=== PATIENT | male | born 1990 | race African-American/Black ===

== ENCOUNTER 2018-04-03 23:41 | Emergency (ER) | payer MEDICAID ==
[~2018-04-03] VITALS: Ht 170.2 cm; Wt 85.7 kg
[2018-04-04 00:03] VITALS: BP_SYST 126
[2018-04-04 00:35] LABS: BASOPHILS # (AUTO) 0.1 K/uL (0.0-0.2); EOSINOPHILS # (AUTO) 0.1 K/uL (0.0-0.4); LYMPHOCYTES # (AUTO) 1.8 K/uL (1.0-5.5); MEAN CORPUSCULAR HGB CONC 34 % (32-36); MONOCYTES # (AUTO) 0.6 K/uL (0.0-1.0); NEUTROPHILS # (AUTO) 4.2 K/uL (1.8-7.7); NEUTROPHILS % (AUTO) 62.7 % (40.0-70.0); WHITE BLOOD COUNT (AUTO) 6.8 K/uL (4.8-10.8)
[2018-04-04 00:37] LABS: BASOPHILS % (AUTO) 1.1 % (0.0-2.0); EOSINOPHILS % (AUTO) 1.1 % (0.0-4.0); HEMATOCRIT 43.3 % (36-54); HEMOGLOBIN 14.5 g/dL (14.0-18.0); LYMPHOCYTES % (AUTO) 26.8 % (20.5-51.5); MEAN CORPUSCULAR HEMOGLOBIN 30 pg (27-31); MEAN CORPUSCULAR VOLUME 90 fL (79.0-98.0); MONOCYTES % (AUTO) 8.3 % (1.7-9.3); PLATELET COUNT (AUTO) 245 K/uL (130-430); RED BLOOD CELL COUNT(AUTO) 4.82 MIL/uL (4.2-6.2); RED CELL DISTRIBUTION WIDTH 12.8 % (9.0-15.0)
[2018-04-04 00:42] LABS: CALCIUM 8.9 mg/dL (8.4-11.0); CREATININE 1.07 mg/dL (0.55-1.30); POTASSIUM 3.6 mmol/L (3.5-5.1)
[2018-04-04 00:48] LABS: ALBUMIN 4.1 g/dL (3.4-4.8); TOTAL BILIRUBIN 0.2 mg/dL (0.0-1.0)
[2018-04-04 01:04] VITALS: BP_SYST 118
== END 2018-04-04 01:04 ==
LOC: SED 23:41
DX: Z02.89 Encounter for other administrative examinations (principal); R07.89 Other chest pain; F10.129 Alcohol abuse with intoxication, unspecified; R06.02 Shortness of breath; E11.9 Type 2 diabetes mellitus without complications; I10 Essential (primary) hypertension; F12.10 Cannabis abuse, uncomplicated
CPT/HCPCS: 36415; 71045; 80053; 84484; 85025; 93005; 99285

== ENCOUNTER 2018-11-28 07:22 | Emergency (ER) | payer MEDICAID ==
[~2018-11-28] VITALS: Ht 175.3 cm; Wt 84.8 kg
[2018-11-28 07:26] VITALS: BP_SYST 143
[2018-11-28] MEDS ORDERED: NACL 0.9% 1,000 ML IV ONE ×2 (07:45→10:00)
[2018-11-28] MEDS ORDERED: MORPHINE 4 MG/ML INJ. SYRINGE IM ONE (07:45)
[2018-11-28] MEDS ORDERED: ONDANSETRON HCL 4 MG/2 ML VIAL IVP ONE (07:45)
[2018-11-28 08:12] LABS: BASOPHILS % (AUTO) 0.8 % (0.0-2.0); EOSINOPHILS % (AUTO) 0.8 % (0.0-4.0); HEMATOCRIT 44.9 % (36-54); HEMOGLOBIN 14.9 g/dL (14.0-18.0); LYMPHOCYTES % (AUTO) 19.5 % (20.5-51.5); MEAN CORPUSCULAR HEMOGLOBIN 30 pg (27-31); MEAN CORPUSCULAR HGB CONC 33 % (32-36); MEAN CORPUSCULAR VOLUME 91 fL (79.0-98.0); MONOCYTES % (AUTO) 6.9 % (1.7-9.3); PLATELET COUNT (AUTO) 230 K/uL (130-430); RED BLOOD CELL COUNT(AUTO) 4.93 MIL/uL (4.2-6.2); RED CELL DISTRIBUTION WIDTH 13.6 % (9.0-15.0); WHITE BLOOD COUNT (AUTO) 5.7 K/uL (4.8-10.8)
[2018-11-28 08:13] LABS: LYMPHOCYTES # (AUTO) 1.1 K/uL (1.0-5.5); MONOCYTES # (AUTO) 0.4 K/uL (0.0-1.0); NEUTROPHILS # (AUTO) 4.1 K/uL (1.8-7.7)
[2018-11-28 08:20] LABS: CALCIUM 9.2 mg/dL (8.4-11.0); CREATININE 0.98 mg/dL (0.55-1.30)
[2018-11-28 08:22] LABS: INR 0.9 (0.80-1.20); PROTHROMBIN TIME 9.2 SECS (9.5-12.5)
[2018-11-28 08:25] LABS: TOTAL BILIRUBIN 0.3 mg/dL (0.0-1.0)
[2018-11-28] MEDS ORDERED: MORPHINE 2 MG/ML INJ. SYRINGE IVP ONE (08:45)
[2018-11-28 08:47] LABS: BILIRUBIN,URINE NEGATIVE (NEGATIVE); BLOOD, URINE 2+ (NEGATIVE); CLARITY/URINE SL HAZY (CLEAR); COLOR,URINE YELLOW (YELLOW); GLUCOSE,URINE NEGATIVE (NEGATIVE); KETONES,URINE NEGATIVE (NEGATIVE); LEUKOCYTE ESTERASE ,URINE NEGATIVE (NEGATIVE); NITRITE, URINE NEGATIVE (NEGATIVE); PROTEIN URINE NEGATIVE (NEGATIVE); UROBILINOGEN,URINE 0.2 (0.2-1.0)
[2018-11-28 08:55] LABS: BACTERIA,URINE FEW /HPF (None Seen); MUCUS,URINE 1+ /LPF (None Seen); WBC,URINE 0-3 /HPF (0-3)
[2018-11-28] MEDS ORDERED: MORPHINE 4 MG/ML INJ. SYRINGE ONE (09:01)
[2018-11-28 14:11] VITALS: BP_SYST 124
== END 2018-11-28 14:11 | disposition home or self-care (01) ==
LOC: SED 07:22
DX: K29.70 Gastritis, unspecified, without bleeding (principal); J45.901 Unspecified asthma with (acute) exacerbation
CPT/HCPCS: 36415; 74177; 80053; 81000; 82150; 83690; 85025; 85610; 96361; 96372; 96374; 96375; 99284; J2270; J2405; J7030; Q9967